=== PATIENT | female | born 1995 | race Caucasian/White ===

== ENCOUNTER → 2016-12-30 | Outpatient (CLI) | payer BC ==
--- NOTE | 2016-12-30 10:54 | WOMENS IMAGING REPORT ---
EXAM DESCRIPTION: U/S ABDOMEN LIMITED COMPLETED DATE/TIME: 12/30/2016 9:11 am REASON FOR STUDY: NAUSEA WITH VOMITIG; R UPPER QUADRANT PAIN R10.11 R11.2 NAUSEA WITH VOMITING, UNS PECIFIED R10.11 RIGHT UPPER QUADRANT PAIN COMPARISON: None. TECHNIQUE: Dynamic and static grayscale images acquired of the abdomen and recorded on PACS. Additio nal selected color Doppler and spectral images recorded. LIMITATIONS: None. FINDINGS: PANCREAS: No masses. Visualized pancreatic duct normal caliber. LIVER: No masses. Echotexture normal. LIVER VASCULATURE: Normal directional flow of the main portal vein and hepatic veins. GALLBLADDER: No stones. Normal wall thickness. No pericholecystic fluid. ULTRASOUND-DETECTED CROCKETT'S SIGN: Negative. INTRAHEPATIC DUCTS AND COMMON DUCT: CBD and intrahepatic ducts normal caliber. No filling defects. INFERIOR VENA CAVA: Normal flow. AORTA: No aneurysm. RIGHT KIDNEY: Normal size. Normal echogenicity. No solid or suspicious masses. No hydronephrosis. No calcifications. PERITONEAL AND RIGHT PLEURAL SPACE: No ascites or effusions. OTHER: No other significant findings. IMPRESSION: NORMAL RIGHT UPPER QUADRANT ULTRASOUND. TECHNICAL DOCUMENTATION: JOB ID: [id number] [employer]- All Rights Reserved
== END ==
LOC: WI 08:49
PROVIDERS: ATTEND Internal Medicine Gastroenterology
DX: R11.2 Nausea with vomiting, unspecified (principal); R10.11 Right upper quadrant pain
CPT/HCPCS: 76705

== ENCOUNTER 2017-01-03 16:06 | Emergency (ER) | payer BC ==
--- NOTE | 2017-01-03 16:42 | ER Document Report ---
ED Medical Screen (RME) - General Chief Complaint: Abdominal Pain Stated Complaint: VOMITING Time Seen by Provider: 01/03/17 16:40 Notes: Patient states that she has had over 1 month of epigastric and right upper quadrant abdominal pain with vomiting and diarrhea. She states it is continuing to get worse. She states in the last week she has had an upper endoscopy and a right upper quadrant ultrasound both of which were "normal" per the patient. She also states that she has had "normal" labs done. She states she went back to her primary care physician today who referred her to the emergency department. TRAVEL OUTSIDE OF THE [place] IN LAST 30 DAYS: No - Related Data Allergies/Adverse Reactions: No Known Allergies Allergy (Verified 01/03/17 16:14) Past Medical History - Social History Frequency of alcohol use: Social Renal/ Medical History: Denies: Hx Peritoneal Dialysis
[2017-01-03 17:24] LABS: ABSOLUTE LYMPHOCYTES (AUTO) 1.5 10^3/uL (0.5-4.7); ABSOLUTE NEUT (AUTO) 6.3 10^3/uL (1.7-8.2); BASOPHILS % (AUTO) 0.3 % (0-2); EOSINOPHILS % (AUTO) 0.6 % (0-6); HEMATOCRIT 41.1 % (36.0-47.0); HEMOGLOBIN 13.6 g/dL (12.0-15.5); HGB HCT DIFFERENCE -0.3; LYMPHOCYTES % (AUTO) 16.6 % (13-45); MEAN CORPUSCULAR HEMOGLOBIN 31.8 pg (27.0-33.4); MEAN CORPUSCULAR VOLUME 96 fl (80-97); MONOCYTES % (AUTO) 11.2 % (3-13); RED BLOOD COUNT 4.28 10^6/uL (3.72-5.28); RED CELL DISTRIBUTION WIDTH 15.7 % (11.5-14.0); SEGMENTED NEUTROPHILS % (AUTO) 71.3 % (42-78); WHITE BLOOD COUNT 8.8 10^3/uL (4.0-10.5)
[2017-01-03 17:29] LABS: APPEARANCE,URINE SLIGHTLY-CLOUDY; BILIRUBIN,URINE NEGATIVE (NEGATIVE); GLUCOSE, URINE NEGATIVE (NEGATIVE); KETONES,URINE TRACE mg/dL (NEGATIVE); LEUKOCYTE ESTERASE,URINE NEGATIVE (NEGATIVE); NITRITE,URINE NEGATIVE (NEGATIVE); PROTEIN,URINE NEGATIVE (NEGATIVE); URINE SPECIFIC GRAVITY 1.023; UROBILINOGEN,URINE NEGATIVE mg/dL (<2.0)
[2017-01-03] MEDS ORDERED: ONDANSETRON 4 MG TAB.RAPDIS PO ONE (17:38)
[2017-01-03 17:43] LABS: ALANINE AMINOTRANSFERASE 30 U/L (9-52); ALBUMIN 4.6 g/dL (3.5-5.0); ALKALINE PHOSPHATASE 62 U/L (38-126); ANION GAP 11 (5-19); ASPARTATE AMINO TRANSFERASE 24 U/L (14-36); BILIRUBIN,DIRECT 0.3 mg/dL (0.0-0.4); BILIRUBIN,TOTAL 0.7 mg/dL (0.2-1.3); BLOOD UREA NITROGEN 5 mg/dL (7-20); CALCIUM 9.4 mg/dL (8.4-10.2); CARBON DIOXIDE 26 mmol/L (22-30); CHLORIDE 105 mmol/L (98-107); CREATININE RESULT 0.69 mg/dL (0.52-1.25); GLUCOSE 98 mg/dL (75-110); LIPASE 112.4 U/L (23-300); POTASSIUM 3.4 mmol/L (3.6-5.0); TOTAL PROTEIN 7.5 g/dL (6.3-8.2)
[2017-01-03] MEDS ORDERED: NORMAL SALINE 1000 ML 1,000 ML IV ONE (18:02)
--- NOTE | 2017-01-03 18:03 | ER Document Report ---
ED GI/ - General Mode of Arrival: Ambulatory Information source: Patient TRAVEL OUTSIDE OF THE [place] IN LAST 30 DAYS: No <GITA PHILLIP - Last Filed: 01/03/17 21:02> <KEIRY JEFFERS - Last Filed: 01/03/17 22:44> - General Chief Complaint: Abdominal Pain Stated Complaint: VOMITING Time Seen by Provider: 01/03/17 16:40 Notes: Patient is a 21 year old female that presents to the emergency department today with complaints of vomiting, diarrhea, and RUQ pain. Patient states she has had this problem for several months. Patient is having an extensive outpatient workup including already having an endoscopy and gallbladder US both of which were negative. Patient states she has a schedule colonoscopy coming up as well. Patient states her GI doctor and PCP "cannot find what is wrong". (GITA PHILLIP) - Related Data Allergies/Adverse Reactions: No Known Allergies Allergy (Verified 01/03/17 16:14) Past Medical History - General Information source: Patient - Social History Smoking Status: Current Every Day Smoker Cigarette use (# per day): Yes Frequency of alcohol use: Social Drug Abuse: None Lives with: Family Family History: Reviewed & Not Pertinent Patient has suicidal ideation: No - Medical History Medical History: Negative Surgical Hx: Negative <GITA PHILLIP - Last Filed: 01/03/17 21:02> Review of Systems - Review of Systems Constitutional: No symptoms reported EENT: No symptoms reported Cardiovascular: See HPI, Syncope - near Respiratory: No symptoms reported Gastrointestinal: See HPI, Abdominal pain, Diarrhea, Vomiting Genitourinary: No symptoms reported Female Genitourinary: No symptoms reported Musculoskeletal: No symptoms reported Skin: No symptoms reported Hematologic/Lymphatic: No symptoms reported Neurological/Psychological: No symptoms reported -: Yes All other systems reviewed and negative <GITA PHILLIP - Last Filed: 01/03/17 21:02> Physical Exam <GITA PHILLIP - Last Filed: 01/03/17 21:02> <KEIRY JEFFERS - Last Filed: 01/03/17 22:44> - Vital signs Vitals: Temp Pulse Resp BP Pulse Ox 99.0 F 53 L 14 127/71 H 99 01/03/17 16:15 01/03/17 16:15 01/03/17 16:15 01/03/17 16:15 01/03/17 16:15 - Notes Notes: Physical Exam: General: Alert, appears well. HEENT: Normocephalic. Atraumatic. PERRL. Extraocular movements intact. Oropharynx clear. Dry mucous membranes. Neck: Supple. Non-tender. Respiratory: No respiratory distress. Clear and equal breath sounds bilaterally. Cardiovascular: Regular rate and rhythm. Abdominal: Right upper quadrant and right lower quadrant tenderness with palpation. No distension. Normal Bowel Sounds. Back: Non-tender. No deformity or step off. Extremities: Moves all four extremities. Upper extremities: Normal inspection. Normal ROM. Lower extremities: Normal inspection. No edema. Normal ROM. Neurological: Normal cognition. AAOx4. Normal speech. Psychological: Normal affect. Normal Mood. Skin: Warm. Dry. Normal color. (GITA PHILLIP) Course - Laboratory Result Diagrams: 01/03/17 17:00 01/03/17 17:00 <GITA PHILLIP - Last Filed: 01/03/17 21:02> - Laboratory Result Diagrams: 01/03/17 17:00 01/03/17 17:00 - Diagnostic Test Radiology reviewed: Reports reviewed <KEIRY JEFFERS - Last Filed: 01/03/17 22:44> - Re-evaluation Re-evalutation: 01/03/17 22:42 Patient is a 21-year-old female who comes in complaining of right-sided abdominal pain. Patient is also had nausea and vomiting today. Patient was seen by her primary care doctor. She has had an ultrasound and endoscopy which did not show any acute abnormalities per the patient. Patient does not have any acute findings on blood work. She is not . Urine within normal limits. Discussed doing CT that was ordered. Patient wanted it with contrast so that was ordered. Patient has a small right ovarian cyst. While I do not think that this is the source of the symptoms she has been having last few months, as her pain is upper, it could certainly contribute to nausea tonight. Patient is asking what the source of her right upper quadrant pain is and I cannot find one. Patient is instructed to follow-up with her primary care doctor and GI doctor to continue the outpatient workup of her non-life- threatening abdominal pain. Understands and agrees with plan. Stable for discharge. Of note, the patient will be discharged home with Reglan and she already has Zofran at home. (KEIRY JEFFERS) - Vital Signs Vital signs: Temp Pulse Resp BP Pulse Ox 98.1 F 52 L 13 132/80 H 98 01/03/17 21:48 01/03/17 21:48 01/03/17 21:48 01/03/17 21:48 01/03/17 21:48 - Laboratory Laboratory results interpreted by me: 01/03/17 01/03/17 01/03/17 17:00 17:00 17:00 RDW 15.7 H Potassium 3.4 L BUN 5 L Urine Ketones TRACE H Urine Blood LARGE H Discharge <GITA PHILLIP - Last Filed: 01/03/17 21:02> <KEIRY JEFFERS - Last Filed: 01/03/17 22:44> - Discharge Clinical Impression: Abdominal pain Qualifiers: Abdominal location: unspecified location Qualified Code(s): R10.9 - Unspecified abdominal pain Vomiting Qualifiers: Vomiting type: unspecified Vomiting Intractability: non-intractable Nausea presence: with nausea Qualified Code(s): R11.2 - Nausea with vomiting, unspecified Condition: Stable Disposition: HOME, SELF-CARE Instructions: Abdominal Pain ([facility]), Vomiting ([facility]), Ovarian Cyst ([facility]) Additional Instructions: Please follow-up with your doctor as scheduled and continue your outpatient workup of pain and vomiting. You do have a very small ovarian cyst that does not appear dangerous at this time. Prescriptions: Metoclopramide HCl [Reglan 10 mg Tablet] 1 tab PO TIDP PRN #25 tablet PRN Reason: Forms: Return to Work Scribe Attestation: 01/03/17 22:43 I personally performed the services described in the documentation, reviewed and edited the documentation which was dictated to the scribe in my presence, and it accurately records my words and actions. (KEIRY JEFFERS) Scribe Documentation - Scribe Written by Scribe:: Tish Tilley, 01/03/20173 acting as scribe for :: Radha <GITA PHILLIP - Last Filed: 01/03/17 21:02>
--- NOTE | 2017-01-03 19:21 | RADIOLOGY REPORT (SQ) ---
EXAM DESCRIPTION: CT ABD/PELVIS WITH IV ONLY COMPLETED DATE/TIME: 01/03/2017 7:12 pm REASON FOR STUDY: abd pain, nv COMPARISON: None. TECHNIQUE: CT scan of the abdomen and pelvis performed using helical scanning technique with dynamic intravenous contrast injection. No oral contrast. Images reviewed with lung, soft tissue, and bone windows. Reconstructed coronal and sagittal MPR images reviewed. Delayed images for evaluation of the urinary system also acquired. All images stored on PACS. All CT scanners at this facility use dose modulation, iterative reconstruction, and/or weight based d osing when appropriate to reduce radiation dose to as low as reasonably achievable (ALARA). [facility]: Dose Right [facility]: CareDose [facility]: Dose Right [facility]: Teradose 4D [facility]: [employer] CONTRAST TYPE AND DOSE: contrast/concentration: Isovue 370.00 mg/ml; Total Contrast Delivered: 79.0 ml; Total Saline Delivered: 68.0 ml RENAL FUNCTION: BUN 5, creatinine 0.69 RADIATION DOSE: Up-to-date CT equipment and radiation dose reduction techniques were employed. CTDIv ol: 5.6 - 7.4 mGy. DLP: 721 mGy-cm.. LIMITATIONS: None. FINDINGS: LOWER CHEST: No significant findings. No nodules or infiltrates. LIVER: Normal size. No masses. No dilated ducts. SPLEEN: Normal size. No focal lesions. PANCREAS: No masses. No significant calcifications. No adjacent inflammation or peripancreatic fluid collections. Pancreatic duct not dilated. GALLBLADDER: No identified stones by CT criteria. No inflammatory changes to suggest cholecystitis. ADRENAL GLANDS: No significant masses or asymmetry. RIGHT KIDNEY AND URETER: No solid masses. No significant calcifications. No hydronephrosis or hyd roureter. LEFT KIDNEY AND URETER: No solid masses. No significant calcifications. No hydronephrosis or hydr oureter. AORTA AND VESSELS: No aneurysm. No dissection. Renal arteries, SMA, celiac without stenosis. RETROPERITONEUM: No retroperitoneal adenopathy, hemorrhage or masses. BOWEL AND PERITONEAL CAVITY: No masses or inflammatory changes. No free fluid or peritoneal masses. APPENDIX: Normal. PELVIS: There is a small right adnexal lesion consistent with ovarian cyst. There is a trace amount of free fluid the pelvis. ABDOMINAL WALL: No masses. No hernias. BONES: No significant or acute findings. OTHER: No other significant finding. IMPRESSION: NO SIGNIFICANT OR ACUTE FINDING IN THE ABDOMEN OR PELVIS ON CT SCAN WITH IV CONTRAST. TECHNICAL DOCUMENTATION: JOB ID: [id number] Quality ID # [id number]: Final reports with documentation of one or more dose reduction techniques (e.g., Au tomated exposure control, adjustment of the mA and/or kV according to patient size, use of iterative reconstruction technique) 2010 [employer] All Rights Reserved
[2017-01-03] MEDS ORDERED: METOCLOPRAMIDE HCL INJ/PF 10 MG/2 ML SDV IV ONE (21:41)
[2017-01-03] MEDS ORDERED: METOCLOPRAMIDE HCL 10 MG TABLET PO ONE (21:52)
[2017-01-03 22:00] VITALS: BP 132/80
== END 2017-01-03 22:01 | disposition home or self-care (01) ==
LOC: ER 16:06
DX: R10.9 Unspecified abdominal pain (principal); R11.2 Nausea with vomiting, unspecified; R19.7 Diarrhea, unspecified; F17.210 Nicotine dependence, cigarettes, uncomplicated; R55 Syncope and collapse
CPT/HCPCS: 99284; 96360; 36415; 83690; 85025; 81025; 80053; 81001; 74177; S0119; J7030

== ENCOUNTER 2017-01-16 01:20 | Emergency (ER) | payer BC ==
[2017-01-16 01:48] VITALS: BP 118/70
== END 2017-01-16 05:00 | disposition left against medical advice (07) ==
LOC: ER 01:20
DX: Z53.21 Procedure and treatment not carried out due to patient leaving prior to being seen by health care provider (principal)